=== PATIENT | female | born 1995 | race Caucasian/White ===

== ENCOUNTER 2018-08-17 17:19 | Emergency (ER) | payer MEDICAID ==
[~2018-08-17] VITALS: Ht 162.6 cm; Wt 67.0 kg
[2018-08-17 19:33] LABS: BASOPHILS % 0.6 % (0.0-2.0); HEMATOCRIT. 37.2 % (36.0-48.0); HEMOGLOBIN. 12.4 g/dL (12.0-16.0); LYMPHOCYTES % 21.9 % (20.0-50.0); MEAN CORPUSCULAR HEMOGLOBIN 29.5 pg (28.0-32.0); MEAN CORPUSCULAR VOLUME 88.5 fL (81.0-99.0); MEAN PLATELET VOLUME 8.6 fl (7.4-10.4); MONOCYTES % 7.1 % (2.0-8.0); NEUTROPHILS % 70.4 % (40.0-76.0); PLATELET 352 x1000/uL (130-400)
[2018-08-17 19:36] LABS: CHLORIDE 109 mEq/L (98-107)
[2018-08-17 19:43] LABS: ETHANOL BLOOD < 10 mg/dL
[2018-08-17 21:10] VITALS: BP 127/72
== END 2018-08-17 21:13 | disposition home or self-care (01) ==
LOC: ER 17:19
DX: F23 Brief psychotic disorder (principal)
CPT/HCPCS: 36415; 80307; 80320; 80329; 93005; 99284; G0480